=== PATIENT | male | born 1945 | race Caucasian/White ===

== ENCOUNTER 2022-02-18 13:47 | Emergency (ER) | payer BC ==
[2022-02-18] MEDS ORDERED: Boostrix 0.5 ML (Tdap) VIAL ONE (14:55)
[2022-02-18] MEDS ORDERED: Bupivacaine PF 0.5% 30 ML VIAL ONE (14:59)
== END 2022-02-18 16:04 | disposition home or self-care (01) ==
LOC: CSHERS 13:47
DX: S61.211A Laceration without foreign body of left index finger without damage to nail, initial encounter (principal); W45.8XXA Other foreign body or object entering through skin, initial encounter
CPT/HCPCS: 12001; 90471; 90715; S0020

== ENCOUNTER 2024-05-15 13:15 | Outpatient (CLI) | payer BC ==
[~2024-05-15 13:15] MED LIST: Iopamidol 370 76% 100 ML VIAL ONE
== END 2024-05-15 13:16 | disposition home or self-care (01) ==
LOC: CSHCT 13:15
PROVIDERS: ATTEND Internal Medicine Cardiovascular Disease
DX: I77.89 Other specified disorders of arteries and arterioles (principal); I71.21 Aneurysm of the ascending aorta, without rupture; K80.20 Calculus of gallbladder without cholecystitis without obstruction
CPT/HCPCS: 71275; 82565; Q9967